=== PATIENT | female | born 1995 | race Caucasian/White ===

== ENCOUNTER → 2019-04-11 | Outpatient (CLI) | payer OTHER ==
[~2019-04-11] MED LIST: METHACHOLINE KIT (J7674) INH ONE
--- NOTE | 2019-04-11 14:44 | PFTRPT ---
Height: 70.00 Inches Weight: 156.00 Lbs BSA: 1.88 Diagnosis: R06.00 DATE: 04/11/2019 ORDERED BY: STACEY Woo INTERPRETATION: Study of excellent technical quality. Under protocol, methacholine was administered. At a dose of 2.5 mg or 13.875 CDUs, a 31% decline in the FEV1 was noted. PC of 0.74 is significant. Flow rates did return to baseline post-bronchodilator administration. IMPRESSION: Positive methacholine challenge study. MTDD
== END ==
LOC: M CARPUL 13:40
PROVIDERS: ATTEND Physician Assistant
DX: R06.00 Dyspnea, unspecified (principal)
CPT/HCPCS: 94070; J7674

== ENCOUNTER → 2020-12-05 | Outpatient (REF) ==
[~2020-12-05] MED LIST changes: +ADV250INH INH; +FLUO20CA22 PO; -METHACHOLINE KIT (J7674) INH ONE
--- NOTE | 2020-12-05 14:59 | REP ---
INDICATION: SOB. COMPARISON: None. FINDINGS: The superior mediastinal structures are midline. The cardiac silhouette is unremarkable in size, shape, and position. The diaphragmatic surfaces of the lungs are regular, and the costophrenic angles are clear. The pulmonary raza are clear. The imaged osseous structures are intact. IMPRESSION: There is no acute cardiopulmonary disease. <Electronically signed by Tha López > 12/05/20 [id number]
== END ==
LOC: M PLAIMG 14:18
PROVIDERS: ATTEND Internal Medicine
DX: Z00.00 Encounter for general adult medical examination without abnormal findings (principal)